=== PATIENT | male | born 1980 | race Caucasian/White ===

== ENCOUNTER 2024-11-28 22:46 | Inpatient (IN) | payer SELFPAY ==
[~2024-11-28] VITALS: Ht 160 cm; Wt 72.1 kg
[2024-11-28 23:09] LABS: DIFFERENTIAL COMMENT 1; HEMATOCRIT. 44.6 % (42.0-52.0); HEMOGLOBIN. 15.1 g/dL (14.0-18.0); MEAN CORPUSCULAR HEMOGLOBIN 27.4 pg (28.0-32.0); MEAN CORPUSCULAR HGB CONC 33.8 g/dL (31.0-37.0); MEAN CORPUSCULAR VOLUME 80.9 fL (80.0-94.0); MEAN PLATELET VOLUME 7.6 fl (7.4-10.4); PLATELET 372 x1000/uL (130-400); RED BLOOD CELL COUNT 5.52 mill/uL (4.7-6.1); RED CELL DISTRIBUTION WIDTH 14.3 % (11.6-14.6); WHITE BLOOD COUNT 15.7 x1000/uL (4.5-11.0)
[2024-11-28 23:13] LABS: CHLORIDE 106 mEq/L (98-107); POTASSIUM 4.1 mEq/L (3.5-5.1); SODIUM 139 mEq/L (136-145)
[2024-11-28 23:15] LABS: CALCIUM 9.4 mg/dL (8.7-10.4); CARBON DIOXIDE 24 mEq/L (21-32)
[2024-11-28] MEDS: ACETAMINOPHEN 325MG TABLET PO ONE (23:15)
[2024-11-28] MEDS: ONDANSETRON HCL 4MG TABLET PO ONE (23:15)
[2024-11-28 23:17] LABS: PLATELET ESTIMATE NORMAL
[2024-11-28 23:20] LABS: CREATININE 0.8 mg/dL (0.6-1.3); GLUCOSE 149 mg/dL (70-105); UREA NITROGEN BLOOD 17 mg/dL (9-23)
[2024-11-28 23:22] LABS: ALANINE AMINOTRANSFERASE 92 IU/L (10-49); ALBUMIN 4.7 g/dL (3.2-4.8); ASPARTATE AMINOTRANSFERASE 73 IU/L (<34); BILIRUBIN DIRECT 0.2 mg/dL (<=3.0); BILIRUBIN TOTAL 0.8 mg/dL (0.1-1.0); PROTEIN TOTAL 8.1 g/dL (6.0-8.3)
[2024-11-29] MEDS: SODIUM CHLORIDE 0.9% 1,000 ML IV ONE (00:45)
[2024-11-29] MEDS: ONDANSETRON HCL 4MG TABLET PO NR (02:10)
[2024-11-29] MEDS: ACETAMINOPHEN 325MG TABLET PO NR (02:10)
[2024-11-29] MEDS: MORPHINE SULFATE 2 MG/ML INJ (NOT FOR IM USE) IV ONE (03:50)
[2024-11-29] MEDS ORDERED: NA PHOS,M-B/NA PHOS,DI-BA ENEMA 118ML PR PRN (04:30)
[2024-11-29] MEDS ORDERED: GUAIFENESIN 200MG/10ML SUGAR FREE UDC PO PRN (04:30)
[2024-11-29] MEDS ORDERED: ONDANSETRON HCL 4MG/2ML INJ IV PRN (04:30)
[2024-11-29] MEDS ORDERED: ACETAMINOPHEN 325MG TABLET PO PRN (04:30)
[2024-11-29] MEDS ORDERED: CLONIDINE 0.1MG TABLET PO PRN (04:30)
[2024-11-29] MEDS ORDERED: MAGNESIUM/ALUMINUM HYDROXIDE/SIMETHICONE 30ML UDC PO PRN (04:30)
[2024-11-29 06:01] LABS: BASOPHILS % 0.6 % (0.0-2.0); HEMATOCRIT. 43.5 % (42.0-52.0); HEMOGLOBIN. 14.5 g/dL (14.0-18.0); LYMPHOCYTES % 10.8 % (20.0-50.0); MEAN CORPUSCULAR HEMOGLOBIN 27.1 pg (28.0-32.0); MEAN CORPUSCULAR HGB CONC 33.3 g/dL (31.0-37.0); MEAN CORPUSCULAR VOLUME 81.4 fL (80.0-94.0); MEAN PLATELET VOLUME 7.9 fl (7.4-10.4); MONOCYTES % 4.1 % (2.0-8.0); NEUTROPHILS % 84.5 % (40.0-76.0); PLATELET 338 x1000/uL (130-400); RED BLOOD CELL COUNT 5.35 mill/uL (4.7-6.1); RED CELL DISTRIBUTION WIDTH 14.5 % (11.6-14.6)
[2024-11-29 06:03] LABS: CHLORIDE 106 mEq/L (98-107); POTASSIUM 3.9 mEq/L (3.5-5.1); SODIUM 140 mEq/L (136-145)
[2024-11-29 06:04] LABS: CALCIUM 8.6 mg/dL (8.7-10.4); CARBON DIOXIDE 24 mEq/L (21-32)
[2024-11-29 06:09] LABS: CREATININE 0.8 mg/dL (0.6-1.3); GLUCOSE 141 mg/dL (70-105); TRIGLYCERIDE 134 mg/dL (0-150); UREA NITROGEN BLOOD 18 mg/dL (9-23)
[2024-11-29 06:10] LABS: LDL CHOLESTEROL 172 mg/dL (5-100)
[2024-11-29 06:11] LABS: ALANINE AMINOTRANSFERASE 82 IU/L (10-49); ALBUMIN 4.3 g/dL (3.2-4.8); ASPARTATE AMINOTRANSFERASE 55 IU/L (<34); BILIRUBIN TOTAL 0.9 mg/dL (0.1-1.0); CHOLESTEROL 237 mg/dL (<200); HDL CHOLESTEROL 51 mg/dL (>55); PROTEIN TOTAL 7.3 g/dL (6.0-8.3)
[2024-11-29] MEDS: HYDROCODONE/ACETAMINOPHEN 5/325MG TABLET PO PRN (06:12)
[2024-11-29 06:14] LABS: T4 FREE 1.09 ng/dL (0.89-1.76); THYROID STIMULATING HORMONE 0.86 uIU/mL (0.55-4.78)
[2024-11-29] MEDS ORDERED: DEXTROSE 50% WATER 50ML SYRINGE IV PRN (06:15)
[2024-11-29 06:33] LABS: TROPONIN I HIGH SENSITIVITY < 4 ng/L (3.0-53)
[2024-11-29 06:42] LABS: PHOSPHORUS 2.7 mg/dL (2.5-4.9)
[2024-11-29] MEDS: PANTOPRAZOLE 40MG DR TABLET PO SCH (07:15)
[2024-11-29] MEDS: BLOOD SUGAR DIAGNOSTIC STRIP TEST SCH (09:00)
[2024-11-29 12:00] VITALS: BP 128/81; PULSE 90; RESP 20; TEMP 36.8
[2024-11-29] MEDS: DEXT 5%/0.9% NACL 1,000 ML IV SCH (12:30)
[2024-11-29] MEDS: ENOXAPARIN 30MG/0.3ML SYR SUBCUT SCH (13:07)
[2024-11-29] MEDS: LISINOPRIL 10MG TABLET PO SCH (13:08)
[2024-11-29 16:03] VITALS: BP 112/74; PULSE 104; RESP 20; TEMP 36.7; O2SAT 95
[2024-11-29 16:42] LABS: TROPONIN I HIGH SENSITIVITY 4 ng/L (3.0-53)
[2024-11-29 20:00] VITALS: BP 130/81; PULSE 116; RESP 18; TEMP 37.9; O2SAT 97
[2024-11-30] VITALS: BP 121/62; PULSE 109; RESP 17; TEMP 37.9; O2SAT 95
[2024-11-30 04:00] VITALS: BP 125/72; PULSE 115; RESP 18; TEMP 37.5; O2SAT 95
[2024-11-30 08:00] VITALS: BP 119/72; PULSE 109; RESP 18; TEMP 36.6; O2SAT 96
[2024-11-30] MEDS: DOCUSATE SODIUM 100MG CAPSULE PO PRN (08:53)
[2024-11-30 09:17] LABS: HEMATOCRIT 41.4 % (42.0-52.0); HEMOGLOBIN 13.8 g/dL (14.0-18.0); MEAN CORPUSCULAR HEMOGLOBIN 27.2 pg (28.0-32.0); MEAN CORPUSCULAR HGB CONC 33.4 g/dL (31.0-37.0); MEAN CORPUSCULAR VOLUME 81.5 fL (80.0-94.0); PLATELET 328 x1000/uL (130-400); RED BLOOD CELL COUNT 5.08 mill/uL (4.7-6.1); RED CELL DISTRIBUTION WIDTH 14.5 % (11.6-14.6); WHITE BLOOD COUNT 18.8 x1000/uL (4.5-11.0)
[2024-11-30 09:26] LABS: CHLORIDE 103 mEq/L (98-107); POTASSIUM 3.4 mEq/L (3.5-5.1); SODIUM 135 mEq/L (136-145)
[2024-11-30 09:27] LABS: CARBON DIOXIDE 25 mEq/L (21-32)
[2024-11-30 09:32] LABS: CREATININE 0.8 mg/dL (0.6-1.3); GLUCOSE 179 mg/dL (70-105); UREA NITROGEN BLOOD 10 mg/dL (9-23)
[2024-11-30 12:00] VITALS: BP 101/64; PULSE 106; RESP 19; TEMP 36.7; O2SAT 97
[2024-11-30] MEDS: ACETAMINOPHEN 325MG TABLET PO PRN (12:15)
[2024-11-30] MEDS ORDERED: PANT40TA51 PO (14:10)
[2024-11-30] MEDS ORDERED: SENNOSIDES/DOCUSATE SOD 8.6/50MG TABLET PO PRN (15:00)
[2024-11-30] MEDS: SENNOSIDES/DOCUSATE SOD 8.6/50MG TABLET PO NR (15:25)
[2024-11-30 15:38] VITALS: BP 119/75; PULSE 75; TEMP 97.7; O2SAT 98
== END 2024-11-30 16:10 | disposition home or self-care (01) | DRG 282 ==
LOC: ER 22:46 → 6EST 11-29 03:50 → EDBEDREQSVC 11-29 08:20
PROVIDERS: ADMIT Hospitalist; ATTEND Hospitalist
DX: K85.90 Acute pancreatitis without necrosis or infection, unspecified (principal); K76.0 Fatty (change of) liver, not elsewhere classified; I10 Essential (primary) hypertension; K29.80 Duodenitis without bleeding; K80.20 Calculus of gallbladder without cholecystitis without obstruction; K82.8 Other specified diseases of gallbladder
CPT/HCPCS: 36415; 71045; 74176; 76700; 80048; 80053; 80061; 80076; 82787; 82962; 83036; 83605; 83735; 84100; 84439; 84443; 84484; 85025; 85027; 99285; A4606; J1650; J2270; J7030; Q0162